=== PATIENT | male | born 1980 | race Caucasian/White ===

== ENCOUNTER → 2016-12-26 | Outpatient (CLI) | payer OTHER ==
--- NOTE | ~2016-12-26 | 2DMMODE ---
[facility] [address] [place] [address] 2 D/M-MODE ECHOCARDIOGRAM Name: BRUCEEVE L Room #: REG COUNT INCLUDES THE [facility]#: [id number] Admission: 12/26/16 Attend Phys: Jose Krause Discharge: Date of : 82 Date of Service: 12/26/16 1443 Report #: [id number] THIS REPORT FOR: //name// APPROVED REPORT Study performed: 12/26/2016 10:35:56 EXAM: Comprehensive 2D, Doppler, and color-flow Echocardiogram Patient Location: Out-Patient Status: routine Other Information Study Quality: Adequate Indications Chest Pain 2D Dimensions RVDd: 39.92 mm LVEF(%): 61.91 (>50%) IVSd: 11.99 (7-11mm) LVOT Diam: 20.44 (18-24mm) LVDd: 42.82 mm PWd: 10.56 (7-11mm) Ascending Ao: 26.97 (22-36mm) LVDs: 28.67 (25-40mm) Aortic Root: 32.88 mm Moreland's LVEF: 61.91 % Volumes Left Atrial Volume (Systole) Single Plane 4CH: 42.24 mL Single Plane 2CH: 56.88 mL LA ESV Index: 27.00 mL/m2 Aortic Valve AoV Peak Drew.: 1.38 m/s AO Peak Gr.: 7.60 mmHg LVOT Max P.45 mmHg LVOT Max V: 1.27 m/s SANTOS Vmax: 3.02 cm2 Mitral Valve E/A Ratio: 1.2 MV Decel. Time: 213.91 ms MV E Max Drew.: 0.82 m/s MV A Drew.: 0.66 m/s MV PHT: 62.03 ms IVRT: 78.43 ms [facility] [place] [address] 2 D/M-MODE ECHOCARDIOGRAM Name: EVE [facility]ARRERA [id number] Admission: 12/26/16 Attend Phys: Jose Krause Discharge: Date of : 82 Date of Service: 12/26/16 1443 Report #: [id number] Pulmonary Valve PV Peak Drew.: 1.11 m/s PV Peak Gr.: 4.94 mmHg Pulmonary Vein P Vein S: 0.38 m/s P Vein A: 0.22 m/s P Vein D: 0.49 m/s P Vein A Dur.: 129.2 msec P Vein S/D Ratio: 0.78 Tricuspid Valve RAP Estimate: 5.00 mmHg Left Ventricle The left ventricle is normal size. There is normal LV segmental wall motion. Mild concentric left ventricular hypertrophy. The left ventricular systolic function is normal. The left ventricular ejection fraction is within the normal range. LVEF is 60-65%. The left ventricular diastolic function is normal. Right Ventricle The right ventricle is normal size. The right ventricular systolic function is normal. Atria The left atrium size is normal. The right atrium size is normal. Aortic Valve The aortic valve is normal in structure. No aortic regurgitation is present. There is no aortic valvular stenosis. Mitral Valve The mitral valve is normal in structure. Trace mitral regurgitation. No evidence of mitral valve stenosis. Tricuspid Valve The tricuspid valve is normal in structure. There is no tricuspid valve regurgitation noted. Pulmonic Valve The pulmonary valve is normal in structure. Great Vessels The aortic root is normal in size. IVC is normal in size and collapses >50% with inspiration. [facility] [address] [place] [address] 2 D/M-MODE ECHOCARDIOGRAM Name: EVE BARRERA Room #: REG COUNT INCLUDES THE [facility]#: [id number] Admission: 12/26/16 Attend Phys: Jose Krause Discharge: Date of : 82 Date of Service: 12/26/16 1443 Report #: [id number] Pericardium There is no pericardial effusion. <Conclusion> 1. Normal echocardiogram with Doppler. EF 65% 2. Structural valve disease was absent. No significant regurgitant or stenotic lesions. 3. No pericardial effusion <ELECTRONICALLY SIGNED> By: Angus Oliva MD, [facility] 12/26/16 1443 [id number] 1443 Angus Oliva MD, FACC /INF
== END ==
LOC: NUC 11-30 07:38 → CV 11:16
DX: G31.9 Degenerative disease of nervous system, unspecified (principal)

== ENCOUNTER → 2016-12-27 | Outpatient (CLI) | payer OTHER | LOC: MRI 09:57 | DX: A69.20 Lyme disease, unspecified (principal); G43.909 Migraine, unspecified, not intractable, without status migrainosus; E34.8 Other specified endocrine disorders; R41.3 Other amnesia; R07.9 Chest pain, unspecified; R20.0 Anesthesia of skin ==

== ENCOUNTER → 2017-02-05 | Outpatient (CLI) | payer OTHER | LOC: MRI 07:38 | DX: M47.892 Other spondylosis, cervical region (principal); M79.602 Pain in left arm; M62.81 Muscle weakness (generalized) ==